=== PATIENT | female | born 1960 | race Caucasian/White ===

== ENCOUNTER 2016-08-05 14:38 | Emergency (ER) | payer BC ==
[~2016-08-05] VITALS: Ht 160 cm; Wt 80.0 kg
[~2016-08-05 14:38] MED LIST: ALPRAZOLAM1 MG PO; AMITIZA24 MC1 PO; CARAFATE1 G1 PO; CRESTOR10 MG PO; DEXILANT60 MG PO; DILTIAZEM120 M1 PO; FLEXERIL5 MG PO; FLONASE AL50 MCG/ACT; LISINOPRIL10 MG PO; MORPHINE SUL30 M3 PO; PERCOCET 5/321 COMBO PO; PERCOCET1 TA4 PO; RELISTOR8 MG/0.4 M SC; SUMATRIPTAN25 MG PO; VOLTAREN1%GEL TOP; ZOLPIDEM10 MG PO
[2016-08-05] MEDS ORDERED: BACTRIM DS1 TAB PO (14:46)
[2016-08-05] MEDS ORDERED: FLEXERIL5 MG PO (14:51)
[2016-08-05] MEDS ORDERED: PERCOCET 5/325M1 TAB PO (14:53)
[2016-08-05] MEDS ORDERED: ESOMEPRAZOLE MA40 MG PO (14:54)
[2016-08-05 15:04] VITALS: BP 120/62
== END 2016-08-05 15:04 | disposition home or self-care (01) | DRG 607 ==
LOC: ED 14:38
DX: R21 Rash and other nonspecific skin eruption (principal); L29.9 Pruritus, unspecified

== ENCOUNTER 2016-09-01 05:41 | Emergency (ER) | payer BC ==
[~2016-09-01] VITALS: Ht 160 cm; Wt 73.8 kg
[~2016-09-01 05:41] MED LIST changes: +BACTRIM DS1 TAB PO; +ESOMEPRAZOLE MA40 MG PO
[2016-09-01] MEDS ORDERED: D3 MAXIMUM5000 UNI1 PO (05:58)
[2016-09-01] MEDS ORDERED: DEXILANT60 MG PO (05:59)
[2016-09-01] MEDS ORDERED: DILT-XR120 MG PO (06:00)
[2016-09-01] MEDS ORDERED: MELOXICAM15 MG PO (06:04)
[2016-09-01] MEDS ORDERED: FLUTICASONE NAB (06:04)
[2016-09-01] MEDS ORDERED: IMITREX100 M1 PO (06:10)
[2016-09-01] MEDS ORDERED: VOLTAREN1%GEL TOP (06:12)
[2016-09-01 06:43] LABS: HEMATOCRIT 42.8 % (37.0-47.0); HEMOGLOBIN 14.8 g/dl (12.0-16.0); IMMATURE GRANULOCYTES 0.2 % (0.0-1.0); MEAN CELL VOLUME 91.1 fL CALC (80.0-100.0); MEAN CORPUSCULAR HGB 31.5 pG CALC (26.0-32.0); MEAN CORPUSCULAR HGB CONC 34.6 g/L CALC (32.0-36.0); NEUT# 3.31 thou/uL (2.00-7.15); RED BLOOD COUNT 4.7 mill/uL (4.20-5.60)
[2016-09-01 06:54] LABS: ALBUMIN 4.7 g/dL (3.2-5.0); ALKALINE PHOSPHATASE 78 u/l (38-126); ANION GAP 14 (6-22 (CALC)); BILIRUBIN, TOTAL 0.7 mg/dL (0.0-1.4); BUN 30 mg/dL (7-17); BUN/CREATININE RATIO 45 (12-20 (CALC)); CALCIUM 9.9 mg/dL (8.4-10.2); CARBON DIOXIDE 27 mmol/l (22-30); CHLORIDE 104 mmol/l (95-108); CREATININE 0.7 mg/dL (0.5-1.0); GFR > 60 ML/MIN (>=60 (CALC)); GFR FOR AFR.AMER. > 60 ML/MIN (>=60 (CALC)); GLUCOSE 97 mg/dL (65-105); SGOT/AST 29 u/l (14-36); SGPT/ALT 41 u/l (9-52); SODIUM 142 mmol/l (137-146); TOTAL PROTEIN 7.8 g/dL (6.3-8.2)
[2016-09-01 06:59] LABS: URINE BILIRUBIN - DIPSTICK SMALL (NEGATIVE); URINE BLOOD DIPSTICK LARGE (NEGATIVE); URINE CLARITY CLOUDY; URINE COLOR YELLOW; URINE GLUCOSE - DIPSTICK NEGATIVE (NEGATIVE); URINE KETONE NEGATIVE (NEGATIVE); URINE LEUK ESTERASE NEGATIVE (NEGATIVE); URINE NITRITE - DIPSTICK NEGATIVE (Negative); URINE PROTEIN - DIPSTICK TRACE mg/dL (NEG-TRACE); URINE SPECIFIC GRAVITY >=1.030; URINE UROBILINOGEN - DIPSTICK 0.2 E.U./dL (0.2)
[2016-09-01 07:02] LABS: URINE BACTERIA FEW hpf; URINE MUCUS MANY hpf (NONE-FEW); URINE SQUAMOUS EPITHELIAL CELL MODERATE EPI/hpf (0-FEW)
[2016-09-01 07:03] LABS: BARBITURATES NEGATIVE (NEGATIVE); COCAINE NEGATIVE (NEGATIVE); METHADONE NEGATIVE (NEGATIVE); OXCYCODONE POSITIVE (NEGATIVE); TETRAHYDROCANNABIONOL NEGATIVE (NEGATIVE); TRICYLIC ANTIDEPRESSANTS POSITIVE (NEGATIVE)
[2016-09-01 07:15] VITALS: BP 121/86
== END 2016-09-01 07:20 | disposition home or self-care (01) | DRG 93 ==
LOC: ED 05:41
PROVIDERS: Emergency Medicine
DX: R25.2 Cramp and spasm (principal); I10 Essential (primary) hypertension; F41.9 Anxiety disorder, unspecified; K21.9 Gastro-esophageal reflux disease without esophagitis; F32.9 Major depressive disorder, single episode, unspecified; K58.9 Irritable bowel syndrome, unspecified; G47.00 Insomnia, unspecified; G89.29 Other chronic pain; M54.9 Dorsalgia, unspecified; M54.2 Cervicalgia; F17.210 Nicotine dependence, cigarettes, uncomplicated

== ENCOUNTER 2017-06-02 12:52 | Emergency (ER) | payer OTHER ==
[~2017-06-02] VITALS: Ht 160 cm; Wt 90.0 kg
[~2017-06-02 12:52] MED LIST changes: +D3 MAXIMUM5000 UNI1 PO; +DILT-XR120 MG PO; +FLUTICASONE NAB; +IMITREX100 M1 PO; +MELOXICAM15 MG PO
[2017-06-02] MEDS ORDERED: AMLODIPINE5 MG PO (13:29)
[2017-06-02] MEDS ORDERED: METOPROL TAR25 MG PO (13:30)
[2017-06-02] MEDS ORDERED: MOTRIN200 MG PO (13:33)
[2017-06-02 13:50] LABS: HEMATOCRIT 43.1 % (37.0-47.0); HEMOGLOBIN 14.8 g/dl (12.0-16.0); IMMATURE GRANULOCYTES 0.3 % (0.0-1.0); MEAN CELL VOLUME 90.4 fL CALC (80.0-100.0); MEAN CORPUSCULAR HGB CONC 34.3 g/L CALC (32.0-36.0); RED BLOOD COUNT 4.77 mill/uL (4.20-5.60); RED CELL DISTRI WIDTH 11.4 % (11.5-15.5)
[2017-06-02 14:57] LABS: ANION GAP 19 (6-22 (CALC)); BUN 18 mg/dL (7-17); BUN/CREATININE RATIO 24 (12-20 (CALC)); CARBON DIOXIDE 24 mmol/l (22-30); CHLORIDE 105 mmol/l (95-108); CREATININE 0.7 mg/dL (0.5-1.0); GFR > 60 ML/MIN (>=60 (CALC)); GFR FOR AFR.AMER. > 60 ML/MIN (>=60 (CALC)); POTASSIUM 4.1 mmol/l (3.5-5.1); SODIUM 144 mmol/l (137-146)
[2017-06-02] MEDS ORDERED: CLINDAMYCIN300 M1 PO (16:10)
[2017-06-02 16:30] VITALS: BP 111/77
== END 2017-06-02 16:30 | disposition home or self-care (01) | DRG 159 ==
LOC: ED 12:52
PROVIDERS: Family Medicine
DX: K08.89 Other specified disorders of teeth and supporting structures (principal); J32.0 Chronic maxillary sinusitis; R22.0 Localized swelling, mass and lump, head
CPT/HCPCS: Q9967

== ENCOUNTER 2017-07-02 16:54 | Inpatient (IN) | payer OTHER ==
[~2017-07-02] VITALS: Ht 160 cm; Wt 75.0 kg
[~2017-07-02 16:54] MED LIST changes: +AMLODIPINE5 MG PO; +CLINDAMYCIN300 M1 PO; -FLUTICASONE NAB; +METOPROL TAR25 MG PO; +MOTRIN200 MG PO
[2017-07-02 17:28] LABS: HEMATOCRIT 40.3 % (37.0-47.0); HEMOGLOBIN 13.8 g/dl (12.0-16.0); IMMATURE GRANULOCYTES 0.6 % (0.0-1.0); MEAN CELL VOLUME 90.4 fL CALC (80.0-100.0); MEAN CORPUSCULAR HGB 30.9 pG CALC (26.0-32.0); MEAN CORPUSCULAR HGB CONC 34.2 g/L CALC (32.0-36.0); NEUT# 12.05 thou/uL (2.00-7.15); RED BLOOD COUNT 4.46 mill/uL (4.20-5.60); RED CELL DISTRI WIDTH 11.9 % (11.5-15.5)
[2017-07-02 17:40] LABS: BILIRUBIN, TOTAL 0.7 mg/dL (0.0-1.4); CREATININE 1.6 mg/dL (0.5-1.0); TOTAL PROTEIN 7.2 g/dL (6.3-8.2)
[2017-07-02 20:50] LABS: URINE BLOOD DIPSTICK LARGE (NEGATIVE); URINE COLOR YELLOW; URINE GLUCOSE - DIPSTICK NEGATIVE (NEGATIVE); URINE KETONE TRACE mg/dL (NEGATIVE); URINE LEUK ESTERASE NEGATIVE (NEGATIVE); URINE NITRITE - DIPSTICK NEGATIVE (Negative); URINE PROTEIN - DIPSTICK NEGATIVE (NEG-TRACE); URINE SPECIFIC GRAVITY 1.015; URINE UROBILINOGEN - DIPSTICK 0.2 E.U./dL (0.2)
[2017-07-02 20:53] LABS: BARBITURATES NEGATIVE (NEGATIVE); COCAINE NEGATIVE (NEGATIVE); METHADONE NEGATIVE (NEGATIVE); OXCYCODONE POSITIVE (NEGATIVE); TETRAHYDROCANNABIONOL NEGATIVE (NEGATIVE); TRICYLIC ANTIDEPRESSANTS POSITIVE (NEGATIVE)
[2017-07-02 20:55] LABS: URINE BILIRUBIN - DIPSTICK NEGATIVE (NEGATIVE); URINE CLARITY HAZY
[2017-07-02 21:02] LABS: URINE AMORPH SEDIMENT MODERATE hpf (NONE-FEW); URINE SQUAMOUS EPITHELIAL CELL FEW EPI/hpf (0-FEW); URINE WBC 0-2 WBC/hpf (0-5)
[2017-07-03 00:20] VITALS: BP 115/71
[2017-07-03 06:27] VITALS: BP 92/58
[2017-07-03 08:52] VITALS: BP 121/66
[2017-07-03 08:58] LABS: HEMATOCRIT 35.9 % (37.0-47.0); HEMOGLOBIN 12.2 g/dl (12.0-16.0); IMMATURE GRANULOCYTES 0.7 % (0.0-1.0); MEAN CELL VOLUME 91.1 fL CALC (80.0-100.0); NEUT# 9.45 thou/uL (2.00-7.15); RED BLOOD COUNT 3.94 mill/uL (4.20-5.60); RED CELL DISTRI WIDTH 11.9 % (11.5-15.5)
[2017-07-03 09:14] LABS: ANION GAP 18 (6-22 (CALC)); BUN 12 mg/dL (7-17); BUN/CREATININE RATIO 16 (12-20 (CALC)); CARBON DIOXIDE 25 mmol/l (22-30); CHLORIDE 103 mmol/l (95-108); CREATININE 0.8 mg/dL (0.5-1.0); GFR > 60 ML/MIN (>=60 (CALC)); GFR FOR AFR.AMER. > 60 ML/MIN (>=60 (CALC)); POTASSIUM 3.6 mmol/l (3.5-5.1); SODIUM 142 mmol/l (137-146)
[2017-07-03 09:16] LABS: CHOLESTEROL HDL RATIO 5.2 (<4.4 (CALC)); MAGNESIUM 1.8 mg/dL (1.6-2.3)
[2017-07-03 14:54] VITALS: BP 99/57
[2017-07-03 15:19] LABS: C. DIFFICILE TOXIN A&B NEGATIVE (NEGATIVE)
[2017-07-03 20:00] VITALS: BP 125/79
[2017-07-04 04:24] VITALS: BP 108/70
[2017-07-04 05:07] LABS: HEMATOCRIT 33.1 % (37.0-47.0); HEMOGLOBIN 11.2 g/dl (12.0-16.0); IMMATURE GRANULOCYTES 0.9 % (0.0-1.0); MEAN CELL VOLUME 91.4 fL CALC (80.0-100.0); MEAN CORPUSCULAR HGB 30.9 pG CALC (26.0-32.0); MEAN CORPUSCULAR HGB CONC 33.8 g/L CALC (32.0-36.0); NEUT# 4.34 thou/uL (2.00-7.15); RED BLOOD COUNT 3.62 mill/uL (4.20-5.60); RED CELL DISTRI WIDTH 11.9 % (11.5-15.5)
[2017-07-04 05:26] LABS: ANION GAP 16 (6-22 (CALC)); BUN 6 mg/dL (7-17); BUN/CREATININE RATIO 10 (12-20 (CALC)); CARBON DIOXIDE 22 mmol/l (22-30); CHLORIDE 108 mmol/l (95-108); CREATININE 0.6 mg/dL (0.5-1.0); GFR > 60 ML/MIN (>=60 (CALC)); GFR FOR AFR.AMER. > 60 ML/MIN (>=60 (CALC)); MAGNESIUM 1.7 mg/dL (1.6-2.3); POTASSIUM 3.8 mmol/l (3.5-5.1); SODIUM 142 mmol/l (137-146)
[2017-07-04 09:22] VITALS: BP 123/78
[2017-07-04 15:55] VITALS: BP 121/78
[2017-07-04 20:21] VITALS: BP 132/77
[2017-07-05 04:17] VITALS: BP 108/67
[2017-07-05 05:04] LABS: ANION GAP 15 (6-22 (CALC)); BUN 3 mg/dL (7-17); BUN/CREATININE RATIO 6 (12-20 (CALC)); CARBON DIOXIDE 23 mmol/l (22-30); CHLORIDE 108 mmol/l (95-108); CREATININE 0.5 mg/dL (0.5-1.0); GFR > 60 ML/MIN (>=60 (CALC)); GFR FOR AFR.AMER. > 60 ML/MIN (>=60 (CALC)); MAGNESIUM 1.4 mg/dL (1.6-2.3); POTASSIUM 3.4 mmol/l (3.5-5.1); SODIUM 142 mmol/l (137-146)
[2017-07-05 05:09] LABS: HEMATOCRIT 32.5 % (37.0-47.0); HEMOGLOBIN 11.1 g/dl (12.0-16.0); IMMATURE GRANULOCYTES 1.4 % (0.0-1.0); MEAN CORPUSCULAR HGB 30.7 pG CALC (26.0-32.0); MEAN CORPUSCULAR HGB CONC 34.2 g/L CALC (32.0-36.0); NEUT# 3.96 thou/uL (2.00-7.15); RED BLOOD COUNT 3.61 mill/uL (4.20-5.60); RED CELL DISTRI WIDTH 11.9 % (11.5-15.5)
[2017-07-05 09:09] VITALS: BP 125/83
[2017-07-05 12:30] VITALS: BP 109/71
[2017-07-05 16:00] VITALS: BP 126/83
[2017-07-05 19:45] VITALS: BP 134/88
[2017-07-06 05:00] VITALS: BP 126/81
[2017-07-06 05:21] LABS: HEMATOCRIT 34.1 % (37.0-47.0); HEMOGLOBIN 11.7 g/dl (12.0-16.0); IMMATURE GRANULOCYTES 1.1 % (0.0-1.0); MEAN CELL VOLUME 89.7 fL CALC (80.0-100.0); MEAN CORPUSCULAR HGB 30.8 pG CALC (26.0-32.0); MEAN CORPUSCULAR HGB CONC 34.3 g/L CALC (32.0-36.0); NEUT# 2.76 thou/uL (2.00-7.15); RED BLOOD COUNT 3.8 mill/uL (4.20-5.60)
[2017-07-06 05:34] LABS: ANION GAP 16 (6-22 (CALC)); CARBON DIOXIDE 25 mmol/l (22-30); CHLORIDE 106 mmol/l (95-108); CREATININE 0.5 mg/dL (0.5-1.0); GFR > 60 ML/MIN (>=60 (CALC)); GFR FOR AFR.AMER. > 60 ML/MIN (>=60 (CALC)); MAGNESIUM 1.6 mg/dL (1.6-2.3); POTASSIUM 3.3 mmol/l (3.5-5.1); SODIUM 143 mmol/l (137-146)
[2017-07-06 05:39] LABS: BUN < 2 mg/dL (7-17)
[2017-07-06 05:40] LABS: BUN/CREATININE RATIO < 4 (12-20 (CALC))
[2017-07-06 08:40] VITALS: BP 132/85
[2017-07-06 15:57] VITALS: BP 122/81
[2017-07-06 19:15] VITALS: BP 124/83
[2017-07-07 04:20] VITALS: BP 137/84
[2017-07-07 05:16] LABS: HEMATOCRIT 32.9 % (37.0-47.0); HEMOGLOBIN 11.4 g/dl (12.0-16.0); IMMATURE GRANULOCYTES 1.1 % (0.0-1.0); MEAN CELL VOLUME 88.9 fL CALC (80.0-100.0); MEAN CORPUSCULAR HGB 30.8 pG CALC (26.0-32.0); MEAN CORPUSCULAR HGB CONC 34.7 g/L CALC (32.0-36.0); NEUT# 2.58 thou/uL (2.00-7.15); RED BLOOD COUNT 3.7 mill/uL (4.20-5.60); RED CELL DISTRI WIDTH 11.9 % (11.5-15.5)
[2017-07-07 05:40] LABS: ANION GAP 14 (6-22 (CALC)); CARBON DIOXIDE 25 mmol/l (22-30); CHLORIDE 106 mmol/l (95-108); CREATININE 0.5 mg/dL (0.5-1.0); GFR > 60 ML/MIN (>=60 (CALC)); GFR FOR AFR.AMER. > 60 ML/MIN (>=60 (CALC)); MAGNESIUM 1.7 mg/dL (1.6-2.3); POTASSIUM 3.5 mmol/l (3.5-5.1); SODIUM 141 mmol/l (137-146)
[2017-07-07 05:42] LABS: BUN < 2 mg/dL (7-17); BUN/CREATININE RATIO < 4 (12-20 (CALC))
[2017-07-07 08:50] VITALS: BP 130/76
[2017-07-07 09:06] VITALS: BP 130/76
[2017-07-07] MEDS ORDERED: METRONIDAZOL500 MG PO (10:15)
== END 2017-07-07 12:55 | disposition home or self-care (01) | DRG 372 ==
LOC: ED 16:54 → ED-I 22:49 → ED 23:12 → MS2 23:13
PROVIDERS: Emergency Medicine; Internal Medicine; Nurse Practitioner Family; ADMIT Internal Medicine; ATTEND Internal Medicine
DX: A04.5 Campylobacter enteritis (principal); N17.9 Acute kidney failure, unspecified; F40.240 Claustrophobia; F41.9 Anxiety disorder, unspecified; G89.4 Chronic pain syndrome; M19.90 Unspecified osteoarthritis, unspecified site; E86.0 Dehydration; F17.210 Nicotine dependence, cigarettes, uncomplicated; E78.5 Hyperlipidemia, unspecified; K29.70 Gastritis, unspecified, without bleeding; Z87.442 Personal history of urinary calculi

== ENCOUNTER 2018-05-01 05:02 | Emergency (ER) | payer OTHER ==
[~2018-05-01] VITALS: Ht 160 cm; Wt 72.2 kg
[~2018-05-01 05:02] MED LIST changes: +LYRICA75 MG PO; +METRONIDAZOL500 MG PO; +MORPHINE SULFAT30 M1 PO; +OXYCOD-APAP1 TA1 PO; +VITAMIN D35000 UNI1 PO; +ZOLPIDEM10 M1 PO
[2018-05-01 05:51] LABS: IMMATURE GRANULOCYTES 0.8 % (0.0-5.0); MEAN CELL VOLUME 93.2 fL CALC (80.0-100.0); MEAN CORPUSCULAR HGB 31.9 pG CALC (26.0-32.0); MEAN CORPUSCULAR HGB CONC 34.2 g/L CALC (32.0-36.0); NEUT# 2.24 thou/uL (2.00-7.15); RED BLOOD COUNT 4.7 mill/uL (4.20-5.60); RED CELL DISTRI WIDTH 12.1 % (11.5-15.5)
[2018-05-01 05:53] LABS: HEMATOCRIT 43.8 % (37.0-47.0)
[2018-05-01 06:08] LABS: ALBUMIN 4.4 g/dL (3.2-5.0); ALKALINE PHOSPHATASE 79 u/l (38-126); ANION GAP 14 (6-22 (CALC)); BILIRUBIN, TOTAL 0.7 mg/dL (0.0-1.4); BUN 18 mg/dL (7-17); BUN/CREATININE RATIO 28 (12-20 (CALC)); CARBON DIOXIDE 25 mmol/l (22-30); CHLORIDE 105 mmol/l (95-108); CREATININE 0.7 mg/dL (0.5-1.0); GFR > 60 ML/MIN (>=60 (CALC)); GFR FOR AFR.AMER. > 60 ML/MIN (>=60 (CALC)); POTASSIUM 3.8 mmol/l (3.5-5.1); SGOT/AST 23 u/l (14-36); SODIUM 140 mmol/l (137-146); TOTAL PROTEIN 7.3 g/dL (6.3-8.2)
[2018-05-01] MEDS ORDERED: HYDROCO/APAP1 TA9 PO (06:59)
[2018-05-01] MEDS ORDERED: CEPHALEXIN500 M1 PO (07:06)
[2018-05-01] MEDS ORDERED: MEDDOSEPAK PO (07:06)
[2018-05-01 07:10] VITALS: BP 114/85
== END 2018-05-01 07:33 | disposition home or self-care (01) ==
LOC: ED 05:02
PROVIDERS: Emergency Medicine
DX: J32.9 Chronic sinusitis, unspecified (principal); I88.9 Nonspecific lymphadenitis, unspecified; F17.200 Nicotine dependence, unspecified, uncomplicated; J02.9 Acute pharyngitis, unspecified; R06.02 Shortness of breath; R22.1 Localized swelling, mass and lump, neck; R09.81 Nasal congestion

== ENCOUNTER 2018-09-08 03:12 | Emergency (ER) | payer OTHER ==
[~2018-09-08] VITALS: Ht 160 cm; Wt 73.2 kg
[~2018-09-08 03:12] MED LIST changes: +CEPHALEXIN500 M1 PO; +HYDROCO/APAP1 TA9 PO; +MEDDOSEPAK PO
[2018-09-08] MEDS ORDERED: BENADRYL 50MG C50 MG PO (05:40)
[2018-09-08 05:44] VITALS: BP 112/60
== END 2018-09-08 05:44 | disposition home or self-care (01) ==
LOC: ED 03:12
DX: S50.861A Insect bite (nonvenomous) of right forearm, initial encounter (principal); L29.9 Pruritus, unspecified; F17.210 Nicotine dependence, cigarettes, uncomplicated; W57.XXXA Bitten or stung by nonvenomous insect and other nonvenomous arthropods, initial encounter

== ENCOUNTER 2018-11-10 23:03 | Emergency (ER) | payer OTHER ==
[~2018-11-10] VITALS: Ht 160 cm; Wt 60.0 kg
[~2018-11-10 23:03] MED LIST changes: +BENADRYL 50MG C50 MG PO
[2018-11-11 01:17] VITALS: BP 138/78
== END 2018-11-11 01:17 | disposition home or self-care (01) ==
LOC: ED 23:03
DX: S00.03XA Contusion of scalp, initial encounter (principal); S16.1XXA Strain of muscle, fascia and tendon at neck level, initial encounter; F17.210 Nicotine dependence, cigarettes, uncomplicated; W22.09XA Striking against other stationary object, initial encounter; Y92.008 Other place in unspecified non-institutional (private) residence as the place of occurrence of the external cause

== ENCOUNTER 2023-10-06 17:53 | Emergency (ER) | payer OTHER, MEDICARE ==
[~2023-10-06] VITALS: Ht 160 cm; Wt 74.8 kg
[~2023-10-06 17:53] MED LIST changes: +AMOX/K CLAV875 M1 PO
[2023-10-06 18:05] VITALS: BP 188/105
[2023-10-06 18:18] VITALS: BP 147/99
[2023-10-06] MEDS ORDERED: CYCLOBENZAPRINE HCL 5 MG TAB PO ONE (18:20)
[2023-10-06] MEDS ORDERED: traMADol HCL 50 MG/TAB PO ONE (18:20)
[2023-10-06 18:53] LABS: BASO% 0.6 % (0-3); EOS% 3.9 % (0-8); HEMATOCRIT 43.1 % (37.0-47.0); HEMOGLOBIN 14.3 g/dl (12.0-16.0); LYMPH% 33.3 % (15-41); MEAN CELL VOLUME 91.7 fL CALC (80.0-100.0); MEAN CORPUSCULAR HGB 30.4 pG CALC (26.0-32.0); MEAN CORPUSCULAR HGB CONC 33.2 g/dL CAL (32.0-36.0); MONO% 6.8 % (2-13); NEUT# 2.87 thou/uL (2.00-7.15); NEUT% 55.4 % (42-76); RED BLOOD COUNT 4.7 mill/uL (4.20-5.60)
[2023-10-06 19:01] VITALS: BP 117/93
[2023-10-06 19:03] LABS: ALBUMIN 4.4 g/dL (3.2-5.0); BILIRUBIN, TOTAL 0.7 mg/dL (0.02-1.3); CREATININE 0.9 mg/dL (0.5-1.0); TOTAL PROTEIN 7.2 g/dL (6.3-8.2)
[2023-10-06 19:30] VITALS: BP 154/102
[2023-10-06 19:30] LABS: URINE BILIRUBIN - DIPSTICK Negative (NEGATIVE); URINE BLOOD DIPSTICK Moderate (NEGATIVE); URINE CLARITY Clear; URINE GLUCOSE - DIPSTICK Negative (NEGATIVE); URINE KETONE Negative (NEGATIVE); URINE LEUK ESTERASE Trace (Negative); URINE NITRITE - DIPSTICK Negative (Negative); URINE PROTEIN - DIPSTICK Negative (NEG-TRACE); URINE UROBILINOGEN - DIPSTICK 0.2 E.U./dL (0.2)
[2023-10-06 19:32] LABS: URINE COLOR Yellow
[2023-10-06 19:45] VITALS: BP 157/105
[2023-10-06 19:49] LABS: URINE SQUAMOUS EPITHELIAL CELL FEW EPI/hpf (0-FEW); URINE WBC 0-2 WBC/hpf (0-5)
[2023-10-06] MEDS ORDERED: MOTRIN800 MG PO (19:51)
[2023-10-06] MEDS ORDERED: FLEXERIL5 M1 PO (19:52)
[2023-10-06 20:05] VITALS: BP 148/93
== END 2023-10-06 20:05 | disposition home or self-care (01) | DRG 552 ==
LOC: ED 17:53
PROVIDERS: Nurse Practitioner Family
DX: M54.2 Cervicalgia (principal); R51.9 Headache, unspecified; R07.9 Chest pain, unspecified; M25.512 Pain in left shoulder; M25.511 Pain in right shoulder; M25.532 Pain in left wrist; M25.531 Pain in right wrist; F41.9 Anxiety disorder, unspecified; V49.40XA Driver injured in collision with unspecified motor vehicles in traffic accident, initial encounter